=== PATIENT | male | born 1980 | race American Indian/Alaskan Native ===

== ENCOUNTER 2021-10-27 00:20 | Inpatient (IN) | payer SELFPAY ==
[2021-10-27] MEDS ORDERED: HYDROmorphone 1 MG/1 ML INJ IV ONE (00:38)
[2021-10-27] MEDS ORDERED: METOCLOPRAMIDE 10 MG/2 ML INJ IV ONE (00:38)
--- NOTE | 2021-10-27 00:42 | Emergency Department Report ---
ED General Adult HPI - General Chief complaint: Abdominal Pain Stated complaint: ABDOMINAL PAIN/VOMITING Time Seen by Provider: 10/27/21 00:38 Source: patient, RN notes reviewed Mode of arrival: Stretcher Limitations: No Limitations - History of Present Illness Initial comments: The patient was evaluated in the emergency department for symptoms described in the history of present illness. He/she was evaluated in the context of the global COVID-19 pandemic, which necessitated consideration that the patient might be at risk for infection with the virus that causes COVID-19. Institutional protocols and algorithms that pertain to the evaluation of p atients at risk for COVID-19 are in a state of rapid change based on information released by regulatory bodies including the CDC and federal and state organizations. These policies and algorithms were followed during the patient's care in the emergency department. Please note that these policies, procedures and recommendations changed on a rapid basis. This is a 41-year-old gentleman presenting to the emergency room with a complaint of right lower quadrant abdominal pain, with nausea and vomiting. Denies testicular pain and urinary symptoms. Denies additional injuries and complaints. He has never had pain like this before. -: Gradual, days(s) Location: abdomen Radiation: non-radiation Consistency: constant Improves with: medication Worsens with: movement (Movement and palpation) - Related Data Allergies Allergy/AdvReac Type Severity Reaction Status Date / Time No Known Allergies Allergy Unverified 10/27/21 00:41 ED Review of Systems ROS: Stated complaint: ABDOMINAL PAIN/VOMITING Other details as noted in HPI Constitutional: denies: chills, fever Eyes: denies: eye pain, eye discharge, vision change ENT: denies: ear pain, throat pain Respiratory: denies: cough, shortness of breath, wheezing Cardiovascular: denies: chest pain, palpitations Endocrine: no symptoms reported Gastrointestinal: abdominal pain, vomiting. denies: nausea, diarrhea Genitourinary: as per HPI. denies: urgency, dysuria Musculoskeletal: denies: back pain, joint swelling, arthralgia Skin: denies: rash, lesions Neurological: denies: headache, weakness, paresthesias Psychiatric: anxiety. denies: depression Hematological/Lymphatic: denies: easy bleeding, easy bruising ED Physical Exam - General Limitations: No Limitations General appearance: alert, anxious, in distress, obese - Head Head exam: Present: atraumatic, normocephalic - Eye Eye exam: Present: normal appearance, EOMI. Absent: nystagmus - ENT ENT exam: Present: normal exam, normal orophraynx, mucous membranes moist, normal external ear exam - Neck Neck exam: Present: normal inspection, full ROM. Absent: tenderness, menin gismus - Respiratory Respiratory exam: Present: normal lung sounds bilaterally. Absent: respiratory distress, wheezes, rales, rhonchi, stridor, decreased breath sounds - Cardiovascular Cardiovascular Exam: Present: regular rate, normal rhythm, normal heart sounds. Absent: bradycardia, tachycardia, irregular rhythm, systolic murmur, diastolic murmur, rubs, gallop - GI/Abdominal GI/Abdominal exam: Present: soft, tenderness, guarding, rebound, other (There is right lower quadrant tenderness.). Absent: distended, rigid, pulsatile mass - Rectal Rectal exam: Present: deferred - Extremities Exam Extremities exam: Present: normal inspection, full ROM, other (2+ pulses noted in the bilateral upper and lower extremities. There is no palpable cord. negative Homans sign. Muscular compartments are soft. The pelvis is stable.). Absent: pedal edema, calf tenderness - Back Exam Back exam: Present: normal inspection. Absent: tenderness, CVA tenderness (R), CVA tenderness (L), paraspinal tenderness, vertebral tenderness - Neurological Exam Neurological exam: Present: alert, other (No facial droop. Tongue midline. Ex traocular movements intact bilaterally. Facial sensation intact to light touch in V1, V2, V3 distribution bilaterally. 5 and a 5 strength in 4 extremities. Sensation intact to light touch in 4 extremities.) - Psychiatric Psychiatric exam: Present: anxious - Skin Skin exam: Present: warm, dry, intact, normal color. Absent: rash ED Course Vital Signs 10/27/21 10/27/21 10/27/21 00:35 00:39 00:42 Temperature 97.5 F L 97.9 F Pulse Rate 80 74 Respiratory 20 20 Rate Blood Pressure 112/75 Blood Pressure 127/98 [Left] O2 Sat by Pulse 98 100 100 Oximetry - Reevaluation(s) Reevaluation #1: 10/27/21 01:57 Differential diagnosis, including not limited to: Appendicitis, renal colic, colitis, diverticulitis, perforated viscus, inflammatory bowel disease Assessment and plan: 41-year-old gentleman presenting with acute right lower quadrant pain, abdominal pain, nausea vomiting and anorexia with tenderness. Highly suspicious for appendicitis. He is medicated appropriately. Initially, quite uncomfortable, but after hydromorphone, quite comfortable. CT scan abdomen pelvis confirms uncomplicated appendicitis. On repeat assessment, patient stated his pain is improved, he does not require any additional therapy at this time. He is agreeable to admission and hospitalization for acute uncomplicated appendicitis. I contacted general surgery on-call, Dr. Montoya. Discussed the patient's history, physical, laboratory studies and imaging studies and clinical impression. She will follow in consultation. Zosyn antibiotics ordered. Hospital physician, Dr. Alcides Chan to admit to [facility] 10/27/21 03:39 ED Medical Decision Making - Lab Data Result diagrams: 10/27/21 00:53 10/27/21 00:53 Vital Signs 10/27/21 10/27/21 10/27/21 00:35 00:39 00:42 Temperature 97.5 F L 97.9 F Pulse Rate 80 74 Respiratory 20 20 Rate Blood Pressure 112/75 Blood Pressure 127/98 [Left] O2 Sat by Pulse 98 100 100 Oximetry Lab Results 10/27/21 10/27/21 10/27/21 Range/Units 00:53 00:53 00:53 WBC 12.2 H (4.5-11.0) K/mm3 RBC 4.25 (3.65-5.03) M/mm3 Hgb 14.1 (11.8-15.2) gm/dl Hct 41.5 (35.5-45.6) % MCV 98 H (84-94) fl MCH 33 H (28-32) pg MCHC 34 (32-34) % RDW 13.4 (13.2-15.2) % Plt Count 221 (140-440) K/mm3 Lymph % (Auto) 7.8 L (13.4-35.0) % [place] % (Auto) 7.7 H (0.0-7.3) % Eos % (Auto) 0.1 (0.0-4.3) % Baso % (Auto) 0.9 (0.0-1.8) % Lymph # (Auto) 1.0 L (1.2-5.4) K/mm3 [place] # (Auto) 0.9 H (0.0-0.8) K/mm3 Eos # (Auto) 0.0 (0.0-0.4) K/mm3 Baso # (Auto) 0.1 (0.0-0.1) K/mm3 Seg Neutrophils % 83.5 H (40.0-70.0) % Seg Neutrophils # 10.2 H (1.8-7.7) K/mm3 PT 13.8 (12.2-14.9) Sec. INR 0.96 (0.87-1.13) Sodium (137-145) mmol/L Potassium (3.6-5.0) mmol/L Chloride (98-107) mmol/L Carbon Dioxide (22-30) mmol/L Anion Gap mmol/L BUN (9-20) mg/dL Creatinine (0.8-1.3) mg/dL Estimated GFR ml/min BUN/Creatinine Ratio % Glucose (75-100) mg/dL Calcium (8.4-10.2) mg/dL Total Bilirubin 1.40 H (0.1-1.2) mg/dL Direct Bilirubin 0.4 H (0-0.2) mg/dL Indirect Bilirubin 1.0 mg/dL AST 33 (5-40) units/L ALT 19 (7-56) units/L Alkaline Phosphatase 78 (35-129) units/L Total Protein 7.5 (6.3-8.2) g/dL Albumin 4.7 (3.9-5) g/dL Albumin/Globulin Ratio 1.7 % Lipase 30 (13-60) units/L Urine Bilirubin (Negative) Urine RBC (Auto) (0.0-6.0) /HPF Plasma/Serum Alcohol (0-0.07) % 10/27/21 10/27/21 10/27/21 Range/Units 00:53 00:53 01:46 WBC (4.5-11.0) K/mm3 RBC (3.65-5.03) M/mm3 Hgb (11.8-15.2) gm/dl Hct (35.5-45.6) % MCV (84-94) fl MCH (28-32) pg MCHC (32-34) % RDW (13.2-15.2) % Plt Count (140-440) K/mm3 Lymph % (Auto) (13.4-35.0) % [place] % (Auto) (0.0-7.3) % Eos % (Auto) (0.0-4.3) % Baso % (Auto) (0.0-1.8) % Lymph # (Auto) (1.2-5.4) K/mm3 [place] # (Auto) (0.0-0.8) K/mm3 Eos # (Auto) (0.0-0.4) K/mm3 Baso # (Auto) (0.0-0.1) K/mm3 Seg Neutrophils % (40.0-70.0) % Seg Neutrophils # (1.8-7.7) K/mm3 PT (12.2-14.9) Sec. INR (0.87-1.13) Sodium 136 L (137-145) mmol/L Potassium 3.5 L (3.6-5.0) mmol/L Chloride 100.8 (98-107) mmol/L Carbon Dioxide 17 L (22-30) mmol/L Anion Gap 22 mmol/L BUN 11 (9-20) mg/dL Creatinine 0.9 (0.8-1.3) mg/dL Estimated GFR > 60 ml/min BUN/Creatinine Ratio 12 % Glucose 97 (75-100) mg/dL Calcium 9.1 (8.4-10.2) mg/dL Total Bilirubin (0.1-1.2) mg/dL Direct Bilirubin (0-0.2) mg/dL Indirect Bilirubin mg/dL AST (5-40) units/L ALT (7-56) units/L Alkaline Phosphatase (35-129) units/L Total Protein (6.3-8.2) g/dL Albumin (3.9-5) g/dL Albumin/Globulin Ratio % Lipase (13-60) units/L Urine Bilirubin Neg (Negative) Urine RBC (Auto) < 1.0 (0.0-6.0) /HPF Plasma/Serum Alcohol < 0.01 (0-0.07) % - Radiology Data Radiology results: pending, report reviewed, image reviewed CT ABDOMEN AND PELVIS WITH CONTRAST INDICATION / CLINICAL INFORMATION: Acute right lower quadrant abdominal pain with barrington. TECHNIQUE: Axial CT images were obtained through the abdomen and pelvis after 100 cc Omnipaque [address] scans at this location are performed using CT dose reduction for ALARA by means of automated exposure control. COMPARISON: None available. FINDINGS: LOWER CHEST: No significant abnormality of the imaged chest. LIVER: No focal lesion. No acute findings. GALLBLADDER / BILE DUCTS: No significant abnormality. Biliary ducts grossly unremarkable. SPLEEN: No significant abnormality. PANCREAS: No significant abnormality. ADRENALS: No significant abnormality. KIDNEYS/URETERS: No stones or hydronephrosis. No solid renal lesion. STOMACH / DUODENUM / SMALL BOWEL: The stomach, duodenum, and small bowel demonstrate no significant abnormality. No specific abnormality of the mesentery demonstrated. COLON: No significant abnormality. APPENDIX: Enlarged appendix measuring 11-12 mm with moderate periappendiceal fat stranding, no evidence of perforation. DEVIN TONEUM: No free air or free fluid are present within the abdomen or pelvis. LYMPH NODES: No significant adenopathy. AORTA / ARTERIES: No significant abnormality. IVC / VEINS: No significant abnormality. URINARY BLADDER: No significant abnormality. REPRODUCTIVE ORGANS: No significant abnormality. A DDITIONAL ABDOMINAL/PELVIC FINDINGS: None. SKELETAL SYSTEM: Moderate degenerative changes at L4-5 with loss of intervertebral disc space, endplate osteophytes, and vacuum disc phenomenon. IMPRESSION: 1. Acute appendicitis. No findings to suggest perforation. No drainable fluid collections. Signer Name: Mat Briseno II, MD Signed: 10/27/2021 1:35 AM Workstation Name: [id number] Critical care attestation.: If time is entered above; I have spent that time in minutes in the direct care of this critically ill patient, excluding procedure time. ED Disposition Clinical Impression: Acute appendicitis Disposition: 09 ADMITTED INPATIENT Is pt being admited?: Yes Does the pt Need Aspirin: No Condition: Good Referrals: WALTER BAUGH MD [Primary Care Provider] - 3-5 Days
[2021-10-27] MEDS ORDERED: HYDROmorphone 0.5 MG/0.5 ML INJ ONE (00:44)
[2021-10-27 01:23] LABS: Basophils # (Auto) 0.1 K/mm3 (0.0-0.1); Basophils % (Auto) 0.9 % (0.0-1.8); Eosinophils % (Auto) 0.1 % (0.0-4.3); Hematocrit 41.5 % (35.5-45.6); Hemoglobin 14.1 gm/dl (11.8-15.2); Lymphocytes % (Auto) 7.8 % (13.4-35.0); Mean Corpuscular HGB Conc 34 % (32-34); Mean Corpuscular Volume 98 fl (84-94); Monocytes # (Auto) 0.9 K/mm3 (0.0-0.8); Monocytes % (Auto) 7.7 % (0.0-7.3); Platelet Count 221 K/mm3 (140-440); Red Blood Count 4.25 M/mm3 (3.65-5.03); Red Cell Distribution Width 13.4 % (13.2-15.2)
[2021-10-27 01:31] LABS: Albumin 4.7 g/dL (3.9-5); Bilirubin,Direct 0.4 mg/dL (0-0.2)
[2021-10-27 01:34] LABS: INR 0.96 (0.87-1.13)
[2021-10-27 01:42] LABS: BUN/Creatinine Ratio 12; Blood Urea Nitrogen 11 mg/dL (9-20); Calcium 9.1 mg/dL (8.4-10.2); Hemolysis Index 56
[2021-10-27 01:55] LABS: Bilirubin,Urine NEG (Negative); Blood,Urine NEG (Negative); Color,Urine Yellow (Yellow); Mucus,Urine FEW /HPF; Protein,Urine <15 mg/dL mg/dL (Negative); RBC,Urine < 1.0 /HPF (0.0-6.0); Urobilinogen,Urine < 2.0 mg/dL (<2.0)
[2021-10-27 02:12] LABS: WBC,Urine < 1.0 /HPF (0.0-6.0)
--- NOTE | 2021-10-27 02:40 | Cat Scan Report ---
CT ABDOMEN AND PELVIS WITH CONTRAST INDICATION / CLINICAL INFORMATION: Acute right lower quadrant abdominal pain with barrington. TECHNIQUE: Axial CT images were obtained through the abdomen and pelvis after 100 cc Omnipaque [address] scans at this location are performed using CT dose reduction for ALARA by means of automated exposure control. COMPARISON: None available. FINDINGS: LOWER CHEST: No significant abnormality of the imaged chest. LIVER: No focal lesion. No acute findings. GALLBLADDER / BILE DUCTS: No significant abnormality. Biliary ducts grossly unremarkable. SPLEEN: No significant abnormality. PANCREAS: No significant abnormality. ADRENALS: No significant abnormality. KIDNEYS/URETERS: No stones or hydronephrosis. No solid renal lesion. STOMACH / DUODENUM / SMALL BOWEL: The stomach, duodenum, and small bowel demonstrate no significant a bnormality. No specific abnormality of the mesentery demonstrated. COLON: No significant abnormality. APPENDIX: Enlarged appendix measuring 11-12 mm with moderate periappendiceal fat stranding, no eviden ce of perforation. PERITONEUM: No free air or free fluid are present within the abdomen or pelvis. LYMPH NODES: No significant adenopathy. AORTA / ARTERIES: No significant abnormality. IVC / VEINS: No significant abnormality. URINARY BLADDER: No significant abnormality. REPRODUCTIVE ORGANS: No significant abnormality. ADDITIONAL ABDOMINAL/PELVIC FINDINGS: None. SKELETAL SYSTEM: Moderate degenerative changes at L4-5 with loss of intervertebral disc space, endpla te osteophytes, and vacuum disc phenomenon. IMPRESSION: 1. Acute appendicitis. No findings to suggest perforation. No drainable fluid collections. Signer Name: Mat Briseno II, MD Signed: 10/27/2021 2:35 AM Workstation Name: [id number]
[2021-10-27] MEDS ORDERED: PIPERACIL/TAZOBACTA 4.5/NS 100 4.5 GM/100 ML VIAL IV ONE (03:09)
[2021-10-27] MEDS ORDERED: ONDANSETRON 4 MG/2 ML INJ IV PRN (04:15)
[2021-10-27] MEDS ORDERED: MORPHINE 2 MG/1 ML INJ IV PRN (04:15)
[2021-10-27] MEDS ORDERED: ACETAMINOPHEN 325 MG TAB PO PRN (04:15)
[2021-10-27] MEDS ORDERED: MORPHINE 4 MG/1 ML INJ IV PRN (04:15)
[2021-10-27] MEDS: SODIUM CHLORIDE 0.9% 1000 ML 1,000 ML IV SCH ×2 (04:38→21:10)
--- NOTE | 2021-10-27 04:38 | History and Physical Report ---
History of Present Illness Date of examination: 10/27/21 Date of admission: 10/27/2021 Chief complaint: Abdominal pain History of present illness: 41-year-old -[place] male presenting in the emergency room today complaining of abdominal pain. Abdominal pain was of sudden onset more in the right lower abdomen. He denies any constipation, no diarrhea, no fever or chills, no chest pain or shortness of breath, no headache or dizziness and no diaphoresis. No no relieving or exacerbating factor for his abdominal pain. He has had associated nausea and vomiting. Patient denies any sick contacts and no recent travel. Denies any contact with anyone with COVID-19. Work-up in the emergency room, CT of the abdomen and pelvis is consistent with acute appendicitis. No findings to suggest perforation. General surgeon on-call was consulted by the ER physician. Patient has also been made NPO started on empiric IV antibiotics and IV analgesic medication. Past History Past Medical History: No medical history Past Surgical History: No surgical history Social history: smoking (Current daily smoker), other (Uses marijuana) Family history: no significant family history Medications and Allergies Allergies Allergy/AdvReac Type Severity Reaction Status Date / Time No Known Allergies Allergy Unverified 10/27/21 00:41 Active Meds: Active Medications Acetaminophen (Acetaminophen 325 Mg Tab) 650 mg PO Q4H PRN PRN Reason: Pain MILD(1-3)/Fever >100.5/KAMARA Sodium Chloride (Nacl 0.9% 1000 Ml) 1,000 mls @ 125 mls/hr IV DIRECT JUSTEN Morphine Sulfate (Morphine 2 Mg/1 Ml Inj) 2 mg IV Q4H PRN PRN Reason: Pain, Moderate (4-6) Morphine Sulfate (Morphine 4 Mg/1 Ml Inj) 4 mg IV Q4H PRN PRN Reason: Pain , Severe (7-10) Ondansetron HCl (Ondansetron 4 Mg/2 Ml Inj) 4 mg IV Q8H PRN PRN Reason: Nausea And Vomiting Sodium Chloride (Sodium Chloride 0.9% 10 Ml Flush Syringe) 10 ml IV BID JUSTEN Sodium Chloride (Sodium Chloride 0.9% 10 Ml Flush Syringe) 10 ml IV PRN PRN PRN Reason: LINE FLUSH Review of Systems Constitutional: no fever, no chills Ears, nose, mouth and throat: no nasal congestion, no sore throat Cardiovascular: no chest pain, no palpitations Respiratory: no cough, no shortness of breath Gastrointestinal: abdominal pain, no nausea, no vomiting, no diarrhea Genitourinary Male: no dysuria, no hematuria, no flank pain, no nocturia Musculoskeletal: no neck pain, no low back pain Integumentary: no rash, no pruritis Neurological: no headaches, no confusion Psychiatric: no anxiety, no depression Endocrine: no polyphagia, no polydipsia, no polyuria, no nocturia Exam - Constitutional Vitals: Temp Pulse Resp BP Pulse Ox 97.9 F 76 12 105/62 97 10/27/21 00:39 10/27/21 03:46 10/27/21 03:46 10/27/21 03:46 10/27/21 03:46 General appearance: Present: no acute distress, well-nourished, obese - EENT Eyes: Present: PERRL, EOM intact. Absent: scleral icterus ENT: hearing intact, clear oral mucosa, dentition normal - Neck Neck: Present: supple, normal ROM - Respiratory Respiratory effort: normal Respiratory: bilateral: CTA - Cardiovascular Rhythm: regular Heart Sounds: Present: S1 & S2. Absent: gallop, systolic murmur, diastolic murmur, rub, click - Extremities Extremities: no ischemia, pulses intact, pulses symmetrical, No edema, normal temperature, normal color, Full ROM Peripheral Pulses: within normal limits - Abdominal General gastrointestinal: Present: soft, tender (Moderate tenderness in the r ight lower quadrant, no guarding and no rebound tenderness), non-distended, normal bowel sounds. Absent: mass - Integumentary Integumentary: Present: clear, warm, dry, normal turgor. Absent: rash - Musculoskeletal Musculoskeletal: strength equal bilaterally - Psychiatric Psychiatric: appropriate mood/affect, intact judgment & insight, memory intact, cooperative - Neurologic Neurologic: CNII-XII intact, no focal deficits, moves all extremities Results - Labs CBC & Chem 7: 10/27/21 00:53 10/27/21 00:53 Labs: Abnormal lab results 10/27/21 10/27/21 10/27/21 Range/Units 00:53 00:53 00:53 WBC 12.2 H (4.5-11.0) K/mm3 MCV 98 H (84-94) fl MCH 33 H (28-32) pg Lymph % (Auto) 7.8 L (13.4-35.0) % [place] % (Auto) 7.7 H (0.0-7.3) % Lymph # (Auto) 1.0 L (1.2-5.4) K/mm3 [place]an # (Auto) 0.9 H (0.0-0.8) K/mm3 Seg Neutrophils % 83.5 H (40.0-70.0) % Seg Neutrophils # 10.2 H (1.8-7.7) K/mm3 Sodium 136 L (137-145) mmol/L Potassium 3.5 L (3.6-5.0) mmol/L Carbon Dioxide 17 L (22-30) mmol/L Total Bilirubin 1.40 H (0.1-1.2) mg/dL Direct Bilirubin 0.4 H (0-0.2) mg/dL Urine pH (5.0-7.0) 10/27/21 Range/Units 01:46 WBC (4.5-11.0) K/mm3 MCV (84-94) fl MCH (28-32) pg Lymph % (Auto) (13.4-35.0) % Row[place] % (Auto) (0.0-7.3) % Lymph # (Auto) (1.2-5.4) K/mm3 [place]an # (Auto) (0.0-0.8) K/mm3 Seg Neutrophils % (40.0-70.0) % Seg Neutrophils # (1.8-7.7) K/mm3 Sodium (137-145) mmol/L Potassium (3.6-5.0) mmol/L Carbon Dioxide (22-30) mmol/L Total Bilirubin (0.1-1.2) mg/dL Direct Bilirubin (0-0.2) mg/dL Urine pH 9.0 H (5.0-7.0) Assessment and Plan Assessments: 1. Acute appendicitis 2. Obesity Plan: 1. Patient admitted and made NPO. Started on IV fluid. 2. Consult placed to surgical team for further evaluation and recommendation. 3. Lifestyle modification encouraged 4. Placed on empiric IV antibiotics and analgesic medication. DVT prophylaxis: Sequential compression device CODE STATUS: Full code
[2021-10-27] MEDS ORDERED: POTASSIUM CHLORIDE 10 MEQ 10 MEQ/100 ML BAG IV ONE ×2 (07:33→10:20)
[2021-10-27] MEDS ORDERED: LIDOCAINE MPF (2%) 20 MG/1 ML VIAL 5 ML ONE ×2 (10:00)
[2021-10-27] MEDS ORDERED: ONDANSETRON 4 MG/2 ML INJ ONE (10:00)
[2021-10-27] MEDS ORDERED: ROCURONIUM 50 MG/5 ML INJ IV ONE (10:00)
[2021-10-27] MEDS ORDERED: propofoL 200 MG/20 ML VIAL IV ONE (10:00)
[2021-10-27] MEDS ORDERED: HYDROmorphone 1 MG/1 ML INJ ONE (10:00)
[2021-10-27] MEDS ORDERED: BUPIVACAINE/PF (0.5%) 5 MG/1 ML 30 ML VIAL INFILTRATI ONE ×2 (10:08→11:17)
[2021-10-27] MEDS ORDERED: LIDOCAINE (1%) 10 MG/1 ML VIAL 20 ML MDV ONE (10:08)
--- NOTE | 2021-10-27 10:21 | Consultation ---
History of Present Illness Consult date: 10/27/21 Reason for consult: abdominal pain - History of present illness History of present illness: General surgery called to evaluate 41-year-old male who was diagnosed with acute appendicitis. He presented to the emergency room with a 1 day history of nausea vomiting right lower quadrant pain. He denied having the symptoms before. He had a CT scan that showed a dilated appendix with moderate inflammation but no acute signs of perforation or fluid collection. Patient says that he has not vomited since being in the ambulance and rates his current pain about a 6-7 out of 10. Past History Past Medical History: No medical history Past Surgical History: Other (Knee surgery) Social history: smoking (Current daily smoker), other (Uses marijuana) Family history: no significant family history Medications and Allergies Allergies Allergy/AdvReac Type Severity Reaction Status Date / Time No Known Allergies Allergy Unverified 10/27/21 00:41 Home Medications Medication Instructions Recorded Confirmed Last Taken Type No Known Home Medications [No 10/27/21 10/27/21 Unknown History Reported Home Medications] Active Meds: Active Medications Acetaminophen (Acetaminophen 325 Mg Tab) 650 mg PO Q4H PRN PRN Reason: Pain MILD(1-3)/Fever >100.5/KAMARA Sodium Chloride (Nacl 0.9% 1000 Ml) 1,000 mls @ 125 mls/hr IV DIRECT JUSTEN Last Admin: 10/27/21 04:38 Dose: 125 mls/hr Piperacillin Sod/Tazobactam Sod (Zosyn/Ns 4.5gm/100ml) 4.5 gm in 100 mls @ 200 mls/hr IV Q8H JUSTEN; Protocol Potassium Chloride (Kcl 10meq/100ml) 10 meq in 100 mls @ 100 mls/hr IV ONCE ONE Stop: 10/27/21 11:19 Last Admin: 10/27/21 10:03 Dose: 100 mls/hr Morphine Sulfate (Morphine 2 Mg/1 Ml Inj) 2 mg IV Q4H PRN PRN Reason: Pain, Moderate (4-6) Last Admin: 10/27/21 04:36 Dose: 2 mg Morphine Sulfate (Morphine 4 Mg/1 Ml Inj) 4 mg IV Q4H PRN PRN Reason: Pain , Severe (7-10) Ondansetron HCl (Ondansetron 4 Mg/2 Ml Inj) 4 mg IV Q8H PRN PRN Reason: Nausea And Vomiting Last Admin: 10/27/21 04:33 Dose: 4 mg Sodium Chloride (Sodium Chloride 0.9% 10 Ml Flush Syringe) 10 ml IV BID JUSTEN Sodium Chloride (Sodium Chloride 0.9% 10 Ml Flush Syringe) 10 ml IV PRN PRN PRN Reason: LINE FLUSH Review of Systems All systems: negative - Constitutional poor appetite - Gastrointestinal abdominal pain, nausea, vomiting Exam Vital Signs Temp Pulse Resp BP Pulse Ox 97.5 F L 80 20 112/75 98 10/27/21 00:35 10/27/21 00:35 10/27/21 00:35 10/27/21 00:35 10/27/21 00:35 - General physical appearance Positive: well developed, no distress, moderate distress - Eyes Positive: PERRL - ENT Positive: no hearing loss - Respiratory Positive: normal expansion, normal respiratory effort - Cardiovascular Heart Sounds: Present: S1 & S2 - Extremities Extremities: no ischemia - Abdomen Abdomen: Present: soft, other (Tender to palpation right lower quadrant). Absent: distended, rebound, guarding, rigid - Integumentary other (Many tattoos over his torso) - Neurologic Neurologic: alert and oriented to time, place and person, motor strength and sensation are grossly intact, CN II-XII intact Results - Labs 10/27/21 00:53 10/27/21 00:53 Abnormal lab results 10/27/21 10/27/21 10/27/21 Range/Units 00:53 00:53 00:53 WBC 12.2 H (4.5-11.0) K/mm3 MCV 98 H (84-94) fl MCH 33 H (28-32) pg Lymph % (Auto) 7.8 L (13.4-35.0) % [place] % (Auto) 7.7 H (0.0-7.3) % Lymph # (Auto) 1.0 L (1.2-5.4) K/mm3 [place] # (Auto) 0.9 H (0.0-0.8) K/mm3 Seg Neutrophils % 83.5 H (40.0-70.0) % Seg Neutrophils # 10.2 H (1.8-7.7) K/mm3 Sodium 136 L (137-145) mmol/L Potassium 3.5 L (3.6-5.0) mmol/L Carbon Dioxide 17 L (22-30) mmol/L Total Bilirubin 1.40 H (0.1-1.2) mg/dL Direct Bilirubin 0.4 H (0-0.2) mg/dL Urine pH (5.0-7.0) 10/27/21 Range/Units 01:46 WBC (4.5-11.0) K/mm3 MCV (84-94) fl MCH (28-32) pg Lymph % (Auto) (13.4-35.0) % [place] % (Auto) (0.0-7.3) % Lymph # (Auto) (1.2-5.4) K/mm3 [place] # (Auto) (0.0-0.8) K/mm3 Seg Neutrophils % (40.0-70.0) % Seg Neutrophils # (1.8-7.7) K/mm3 Sodium (137-145) mmol/L Potassium (3.6-5.0) mmol/L Carbon Dioxide (22-30) mmol/L Total Bilirubin (0.1-1.2) mg/dL Direct Bilirubin (0-0.2) mg/dL Urine pH 9.0 H (5.0-7.0) Diabetes panel 10/27/21 10/27/21 Range/Units 00:53 00:53 Sodium 136 L (137-145) mmol/L Potassium 3.5 L (3.6-5.0) mmol/L Chloride 100.8 (98-107) mmol/L Carbon Dioxide 17 L (22-30) mmol/L BUN 11 (9-20) mg/dL Creatinine 0.9 (0.8-1.3) mg/dL Glucose 97 (75-100) mg/dL Calcium 9.1 (8.4-10.2) mg/dL AST 33 (5-40) units/L ALT 19 (7-56) units/L Alkaline Phosphatase 78 (35-129) units/L Total Protein 7.5 (6.3-8.2) g/dL Albumin 4.7 (3.9-5) g/dL Calcium panel 10/27/21 10/27/21 Range/Units 00:53 00:53 Calcium 9.1 (8.4-10.2) mg/dL Albumin 4.7 (3.9-5) g/dL Pituitary panel 10/27/21 Range/Units 00:53 Sodium 136 L (137-145) mmol/L Potassium 3.5 L (3.6-5.0) mmol/L Chloride 100.8 (98-107) mmol/L Carbon Dioxide 17 L (22-30) mmol/L BUN 11 (9-20) mg/dL Creatinine 0.9 (0.8-1.3) mg/dL Glucose 97 (75-100) mg/dL Calcium 9.1 (8.4-10.2) mg/dL Adrenal panel 10/27/21 10/27/21 Range/Units 00:53 00:53 Sodium 136 L (137-145) mmol/L Potassium 3.5 L (3.6-5.0) mmol/L Chloride 100.8 (98-107) mmol/L Carbon Dioxide 17 L (22-30) mmol/L BUN 11 (9-20) mg/dL Creatinine 0.9 (0.8-1.3) mg/dL Glucose 97 (75-100) mg/dL Calcium 9.1 (8.4-10.2) mg/dL Total Bilirubin 1.40 H (0.1-1.2) mg/dL AST 33 (5-40) units/L ALT 19 (7-56) units/L Alkaline Phosphatase 78 (35-129) units/L Total Protein 7.5 (6.3-8.2) g/dL Albumin 4.7 (3.9-5) g/dL - Imaging CT scan - abdomen: report reviewed, image reviewed CT scan - pelvis: report reviewed, image reviewed Assessment and Plan 41-year-old male with acute appendicitis. Patient is afebrile and stable with low-grade leukocytosis. Discussed with patient his pathology and both surgical and nonsurgical options for treatment. Patient is agreeable to laparoscopic appendectomy. Patient scheduled for surgery today.
--- NOTE | 2021-10-27 10:26 | Anesthesia Consultation ---
Anesthesia Consult and Med Hx Date of service: 10/27/21 - Airway Anesthetic Teeth Evaluation: Good ROM Head & Neck: Adequate Mental/Hyoid Distance: Adequate Mallampati Class: Class II Intubation Access Assessment: Probably Good - Pulmonary Exam CTA: Yes - Cardiac Exam Cardiac Exam: RRR - Pre-Operative Health Status ASA Pre-Surgery Classification: ASA2, Emergency Proposed Anesthetic Plan: General - Pulmonary Hx Smoking: Yes (Marijuana) Hx Respiratory Symptoms: No Hx Sleep Apnea: No - Cardiovascular System Hx Hypertension: No Hx Heart Attack/AMI: No - Central Nervous System Hx Neuromuscular Disorder: No Hx Seizures: No - Gastrointestinal Hx Gastroesophageal Reflux Disease: No - Endocrine Hx Renal Disease: No Hx Liver Disease: No Hx Insulin Dependent Diabetes: No Hx Non-Insulin Dependent Diabetes: No Hx Thyroid Disease: No - Other Systems Hx Alcohol Use: No Hx Substance Use: Yes (Marijuana) Hx Obesity: Yes (BMI- 35.9kg) - Additional Comments Anesthesia Medical History Comments: Patient has no history of previous anesthesia complication
--- NOTE | 2021-10-27 10:27 | Anesthesia Day of Surgery ---
Anesthesia Day of Surgery - Day of Surgery Patient Examined: Yes Patient H&P Reviewed: Yes Patient is NPO: Yes Beta Blockers: No Cardiac Clearance: No Pulmonary Clearance: No
--- NOTE | 2021-10-27 10:54 | Event Note ---
Date: 10/27/21 Patient seen and examined This is the second visit after midnight Patient presented with acute appendicitis, status post laparoscopic appendectomy Patient still in postoperative care Vitals stable, discussed with RN -DC planning per general surgeon -Continue to provide supportive care
[2021-10-27] MEDS ORDERED: ceFAZolin 1 GM VIAL ONE ×2 (11:00→11:04)
[2021-10-27] MEDS ORDERED: dexAMETHasone 20 MG/5 ML VIAL ONE (11:06)
[2021-10-27] MEDS ORDERED: LIDOCAINE (1%) 10 MG/1 ML VIAL 20 ML MDV INFILTRATI ONE (11:17)
[2021-10-27] MEDS ORDERED: SODIUM CHLORIDE 0.9% IRR 1,500 ML BOTTLE IR ONE (11:17)
[2021-10-27] MEDS ORDERED: KETOROLAC 30 MG/1 ML INJ ONE (11:34)
[2021-10-27] MEDS ORDERED: GLYCOPYRROLATE 0.4 MG/2 ML INJ ONE (11:38)
[2021-10-27] MEDS ORDERED: NEOSTIGMINE 10MG/10 ML INJ MDV ONE (11:38)
[2021-10-27] MEDS ORDERED: LACTATED RINGERS 1,000 ML ONE (11:40)
--- NOTE | 2021-10-27 12:21 | Operative Report ---
Operative Report Operative Report: Date of Service: 10/27/2021 Primary Surgeon: Lindsay Montoya MD Procedure: Laparoscopic Appendectomy Anesthesia: GETA Pre-Operative Diagnosis: acute appendicitis Post-Operative Diagnosis: Same Indications for Procedure: 41-year-old male with a 24-hour of abdominal pain nausea vomiting. CAT scan showed acute appendicitis. Patient signed informed consent for laparoscopic appendectomy. He expressed understanding the risk and benefits. Description of Procedure(s): The patient was brought to the operating room and underwent general anesthesia after lower extremity SCD were placed. A bridges catheter was inserted under sterile conditions and the left arm was tucked gently at their side. The abdomen was prepped and draped in the standard fashion. IV antibiotics were given and a time out was performed. Using a veress needle via a stab incision in the umbilicus, the abdomen was insuflated to a pressure of 15mmHg. Using optivew technique, a 5mm trocar was placed just superior and to the left of the umbilicus. There was no gross injury noted to any intra-abdominal structures. After which working trocars were placed under direct visualization. A 12 mm trocar was placed in left mid abdomen, and a 5 mm trocar was inserted in the suprapubic area. The patient was placed in slight Trendelenburg position and tilted towards her left side. The cecum was identified and mobilized, as well as the terminal ileum. There was no gross purulent fluid. The appendix was noted to be retrocecal. The mesoappendix was transected with the harmonic scalpel. The appendix was then taken at its base with a white load on a laparoscopic stapler. The staple line was inspected and found to be hemostatically sound and secure. The appendix was placed in Endo Catch bag. It was then retrieved via the 12 mm trocar. The fascia was then closed using a 0 Vicryl and a suture passer device. Trocars removed under direct visualization. The insufflation was then terminated. The skin incisions were closed using 4-0 Monocryl sutures. All the wounds dressed with dermabond. The patient tolerated the procedure well, was extubated and taken to the recovery room in satisfactory condition. Specimen: appendix Complications: none immediate EBl: minimal Findings: Inflamed nonperforated appendix.
--- NOTE | 2021-10-27 13:06 | Post Anesthesia Evaluation ---
- Post Anesthesia Evaluation Patient Participated: Yes Airway Patent: Yes Stable Respiratory Function: Yes Nausea/Vomiting: No Temp > 96.8F: Yes Pain Manageable: Yes Adequeate Hydration: Yes Anesthesia Complications: No Block Receding Appropriately: Not Applicable Patient on Ventilator: No
[2021-10-27] MEDS: PIPERACIL/TAZOBACTA 4.5/NS 100 4.5 GM/100 ML VIAL IV SCH ×2 (13:29→21:09)
[2021-10-27] MEDS ORDERED: oxyCODONE /ACETAMINOPHEN 5-325MG TAB PO PRN (17:14)
[2021-10-27] MEDS: KETOROLAC 30 MG/1 ML INJ IV SCH ×2 (17:24→17:29)
[2021-10-28] MEDS: KETOROLAC 30 MG/1 ML INJ IV SCH ×3 (00:41→12:09)
[2021-10-28] MEDS: PIPERACIL/TAZOBACTA 4.5/NS 100 4.5 GM/100 ML VIAL IV SCH ×2 (03:24→12:07)
[2021-10-28] MEDS: SODIUM CHLORIDE 0.9% 1000 ML 1,000 ML IV SCH (03:25)
[2021-10-28 07:27] VITALS: BP 141/86
[2021-10-28 10:51] LABS: Bilirubin,Urine NEG (Negative); Blood,Urine NEG (Negative); Color,Urine Amber (Yellow); Mucus,Urine FEW /HPF; Protein,Urine <15 mg/dL mg/dL (Negative); Urobilinogen,Urine < 2.0 mg/dL (<2.0)
--- NOTE | 2021-10-28 11:20 | Discharge Summary ---
Providers - Providers Date of Admission: 10/27/21 04:15 Date of discharge: 10/28/21 Attending physician: MARCOS PARTIDA 10/27/21 03:09 Consult to Physician [CONS] Urgent Comment: Dr. Nicole spoke with Dr. Montoya @ 0316 Consulting Provider: ELIE MONTOYA Physician Instructions: Reason For Exam: Acute appendicitis Primary care physician: WALTER BAUGH Hospitalization Condition: Good Final Discharge Diagnosis (Prints w/discharge instructions): -- Acute appendicitis. -- Morbid obesity Time spent for discharge: 34 minutes Core Measure Documentation - Palliative Care Palliative Care/ Comfort Measures: Not Applicable - Core Measures Any of the following diagnoses?: none Exam - Physical Exam Narrative exam: GENERAL: well-developed and morbidly obese AAM lying on bed appeared to be in no discomfort. HEENT: Normocephalic. Atraumatic. No conjunctival congestion or icterus. Patient has moist mucous membranes. NECK: Supple. Trachea midline. CHEST/LUNGS: Clear to auscultated bilaterally, breathing nonlabored. No wheezes crackles or rhonchi. HEART/CARDIOVASCULAR: Regular in rate and rhythm. S1 and S2 positive. ABDOMEN: Abdomen is soft, nontender. Patient has normal bowel sounds. SKIN: There is no rash. Warm and dry. NEURO: No focal motor deficit. Follows command. MUSCULOSKELETAL: No joint effusion or tenderness. EXTRIMITY: No edema, no cyanosis or clubbing. PSYCH: Cooperative. - Constitutional Vitals: Temp Pulse Resp BP Pulse Ox 98.6 F 47 L 18 141/86 98 10/28/21 07:25 10/28/21 07:25 10/28/21 10:00 10/28/21 07:25 10/28/21 10:00 Plan Activity: advance as tolerated Weight Bearing Status: Non-Weight Bearing Diet: low fat, low salt Follow up with: WALTER BAUGH MD [Primary Care Provider] - 3-5 Days ELIE MONTOYA MD [Staff Physician] - 7 Days
[2021-10-28 12:14] LABS: Basophils % (Auto) 0.1 % (0.0-1.8); Eosinophils % (Auto) 0.1 % (0.0-4.3); Hematocrit 41.7 % (35.5-45.6); Hemoglobin 14.1 gm/dl (11.8-15.2); Lymphocytes # (Auto) 1.6 K/mm3 (1.2-5.4); Lymphocytes % (Auto) 14.2 % (13.4-35.0); Mean Corpuscular HGB Conc 34 % (32-34); Mean Corpuscular Volume 99 fl (84-94); Monocytes # (Auto) 0.8 K/mm3 (0.0-0.8); Monocytes % (Auto) 6.9 % (0.0-7.3); Platelet Count 194 K/mm3 (140-440); Red Blood Count 4.22 M/mm3 (3.65-5.03); Red Cell Distribution Width 12.9 % (13.2-15.2)
[2021-10-28 12:36] LABS: BUN/Creatinine Ratio 11; Blood Urea Nitrogen 10 mg/dL (9-20); Calcium 8.9 mg/dL (8.4-10.2); Hemolysis Index 9
--- NOTE | 2021-10-28 14:35 | Progress Note ---
Assessment and Plan POD#1 s/p lap appy for appendicitis. Afebrile and stable. OK to d/c. Follow up in the office in two weeks. Subjective Date of service: 10/28/21 Narrative: Pt has no complaints. Says he feels well and is tolerating diet. Objective Vital Signs - 12hr 10/28/21 10/28/21 10/28/21 03:37 04:00 07:25 Temperature 98.3 F 98.6 F Pulse Rate 47 L 47 L 47 L Respiratory 18 18 18 Rate Blood Pressure 121/62 141/86 Blood Pressure 121/62 [Left] O2 Sat by Pulse 96 97 95 Oximetry 10/28/21 10:00 Temperature Pulse Rate Respiratory 18 Rate Blood Pressure Blood Pressure [Left] O2 Sat by Pulse 98 Oximetry - General physical appearance well developed, no distress, no pain - Eyes PERRL - ENT no hearing loss - Respiratory normal expansion, normal respiratory effort - Abdomen soft, other (incisions c/d/i, appropriately tender to palpation) - Labs 10/28/21 09:56 10/28/21 09:56 Diabetes panel 10/28/21 Range/Units 09:56 Sodium 137 (137-145) mmol/L Potassium 3.9 (3.6-5.0) mmol/L Chloride 102.9 (98-107) mmol/L Carbon Dioxide 21 L (22-30) mmol/L BUN 10 (9-20) mg/dL Creatinine 0.9 (0.8-1.3) mg/dL Glucose 78 (75-100) mg/dL Calcium 8.9 (8.4-10.2) mg/dL Calcium panel 10/28/21 Range/Units 09:56 Calcium 8.9 (8.4-10.2) mg/dL Pituitary panel 10/28/21 Range/Units 09:56 Sodium 137 (137-145) mmol/L Potassium 3.9 (3.6-5.0) mmol/L Chloride 102.9 (98-107) mmol/L Carbon Dioxide 21 L (22-30) mmol/L BUN 10 (9-20) mg/dL Creatinine 0.9 (0.8-1.3) mg/dL Glucose 78 (75-100) mg/dL Calcium 8.9 (8.4-10.2) mg/dL Adrenal panel 10/28/21 Range/Units 09:56 Sodium 137 (137-145) mmol/L Potassium 3.9 (3.6-5.0) mmol/L Chloride 102.9 (98-107) mmol/L Carbon Dioxide 21 L (22-30) mmol/L BUN 10 (9-20) mg/dL Creatinine 0.9 (0.8-1.3) mg/dL Glucose 78 (75-100) mg/dL Calcium 8.9 (8.4-10.2) mg/dL
== END 2021-10-28 15:00 | disposition home or self-care (01) | DRG 343 ==
LOC: ED 00:20 → 3A 04:15 → 4A 05:56
PROVIDERS: ADMIT Internal Medicine Geriatric Medicine; ATTEND Internal Medicine
PROC: 0DTJ4ZZ Resection of Appendix, Percutaneous Endoscopic Approach (ICD-10-PCS; principal; 2021-10-27)
DX: K35.80 Unspecified acute appendicitis (principal); E66.9 Obesity, unspecified; Z68.35 Body mass index [BMI] 35.0-35.9, adult; E66.01 Morbid (severe) obesity due to excess calories
CPT/HCPCS: 36415; 74177; 80048; 80076; 80320; 81001; 83690; 85025; 85610; 87086; 88304; G0378; J1815; J3490; G0480; J0690; J1100; J1170; J1885; J2270; J2405; J2543; J2704; J2710; J2765; J3480; J7030; J7120; Q9967